=== PATIENT | female | born 1995 | race Caucasian/White ===

== ENCOUNTER 2018-11-10 21:50 | Emergency (ER) | payer SELFPAY ==
[2018-11-10 22:05] VITALS: BP 121/72
--- NOTE | 2018-11-10 22:18 | UC ---
Throat Pain/Nasal [place] HPI - HPI Summary HPI Summary: Pt presents to reporting intermittent sore throat for the last 2-3 weeks. Patient states the last 3 days been more constant. Patient states she has some clear drainage from her nose. Patient states she has noticed some inflamed lymph nodes. No analgesia taken. Patient did use a call from [facility]. No nausea vomiting. No fevers or chills. Pt has felt warm. No ear pain. No cough. No shortness of breath. Patient denies sick contacts. Patient just completed her first year is a very student at [employer]. Patient states she is not . Medications reviewed this visit. - History of Current Complaint Chief Complaint: UCGeneralIllness Stated Complaint: SINUS INFECTION? Time Seen by Provider: 11/10/18 22:08 Hx Obtained From: Patient Hx Last Menstrual Period: none Onset/Duration: Gradual Onset Severity: Mild Pain Intensity: 5 Pain Scale Used: 0-10 Numeric - Allergies/Home Medications Allergies/Adverse Reactions: Allergies Allergy/AdvReac Type Severity Reaction Status Date / Time No Known Allergies Allergy Verified 11/10/18 22:05 Home Medications: Home Medications Ascorbic Acid TAB* [Vitamin C TAB*] 500 mg PO DAILY 11/10/18 [History Confirmed 11/10/18] Multivitamin [Multivitamins] 1 cap PO DAILY 11/10/18 [History Confirmed 11/10/18 ] Norethindr/Eth Estradiol(Nf) [Lo Loestrin Fe (NF)] 1 tab PO DAILY 11/10/18 [ History Confirmed 11/10/18] PMH/Surg Hx/FS Hx/Imm Hx Previously Healthy: Yes - Surgical History Surgical History: None - Family History Known Family History: Positive: Non-Contributory - Social History Occupation: Student Lives: Dormitory/Roommates Alcohol Use: Occasionally Substance Use Type: None Smoking Status (MU): Never Smoked Tobacco Review of Systems All Other Systems Reviewed And Are Negative: Yes Constitutional: Positive: Negative Skin: Positive: Negative Eyes: Positive: Negative ENT: Positive: Sore Throat, Nasal Discharge, Sinus Congestion Respiratory: Positive: Negative Cardiovascular: Positive: Negative Physical Exam - Summary Physical Exam Summary: Vital Signs Reviewed: Yes A+Ox3, no distress Eyes: Conjunctiva Clear, ANTHONY. EOM intact and full ENT: Hearing grossly normal TM x 2 clear, turbinates mildly inflammed and boggy , mild pnd, mmoist, uvula midline, no exudate, no erythema Neck: Positive: Supple, mild LA submandibular Respiratory: Positive: No respiratory distress, No accessory muscle use + CTA throughout no w/r Cardiovascular: RRR nl s1, s2 no m/r CBT <2 sec abd soft + BS nt/nd no guarding, no distension Musculoskeletal Exam: ÁVLAREZ x 4 without difficulty Strength Intact, ROM Intact Neurological: Positive: Alert, + sensation throughout Psychological: Positive: Normal Response To Family Skin: Positive: no rash, no ecchymosis Triage Information Reviewed: Yes Vital Signs: Initial Vital Signs Temp 98.0 F 11/10/18 21:59 Pulse 92 11/10/18 21:59 Resp 16 11/10/18 21:59 BP 121/72 11/10/18 21:59 Pulse Ox 98 11/10/18 21:59 Throat Pain/Nasal Course/Dx - Course Course Of Treatment: PT presents with 3 weeks intermittent sore throat, pnd. Pt with 2 days increased discomfort in throat and pnd. No OTC meds taken vss pt with clear sinus discharge and pnd, no exudate mild LA strep neg recommend flonase, decongestant If no improvement 24-48 horus, okay to start abx secretion precaution return precaution - Differential Dx/Diagnosis Provider Diagnosis: Pharyngitis Discharge - Sign-Out/Discharge Documenting (check all that apply): Patient Departure All imaging exams completed and their final reports reviewed: No Studies - Discharge Plan Condition: Stable Disposition: HOME Prescriptions: Amoxicillin/Clavulanate TAB* [Augmentin TAB 875*] 875 mg PO BID #14 tab Fluticasone NASAL SPRAY 50MCG* [Flonase NASAL SPRAY 50MCG*] 2 spray BOTH NARES DAILY #1 btl Patient Education Materials: Pharyngitis (ED) Referrals: No Primary Care Phys,NOPCP [Primary Care Provider] - Additional Instructions: - Okay to alternate ibuprofen (Advil, Motrin) and Tylenol every 3 hours for pain. Take with food. Do NOT take for more than 4-5 days - Okay to gargle and spit warm salt water every 4 hours as needed for pain - Stay well hydrated - frequent sips of cold fluids will be soothing to your throat (popsicles, jello, ice cream, ice water). Avoid excess caffeine until your symptoms have resolved. -Throat infections are spread by oral secretions - do not share eating or drinking utensils until you symptoms are resolved. Clean items that may get your secretions such as cell phones, ipads, computer mouse, television remotes. Once you start to feel better, change your toothbrush and your pillowcase. - use nasal spray as prescribed - Okay to take decongestant medication as recommended - Claritin D, Rhina-D, zyrtec D - If your symptoms persist 24 hours after taking nasal spray and decongestant, okay to start antibiotics as prescribed - Contact your doctor to arrange a follow-up appointment as needed - Billing Disposition and Condition Condition: STABLE Disposition: Home
== END 2018-11-10 22:45 | disposition home or self-care (01) ==
LOC: UCEAST 21:50
DX: J02.9 Acute pharyngitis, unspecified (principal)
CPT/HCPCS: 87651; 99202; G0463